=== PATIENT | male | born 1990 | race Caucasian/White ===

== ENCOUNTER 2017-05-26 07:48 | Day surgery (SDC) | payer OTHER ==
[~2017-05-26] VITALS: Ht 175.3 cm; Wt 86.2 kg
[~2017-05-26 07:48] MED LIST: TYLENOL EXTRA500 MG PO
[2017-05-26 08:32] VITALS: BP 128/85
[2017-05-26 11:00] VITALS: BP 133/86
[2017-05-26 11:37] VITALS: BP 120/72
== END 2017-05-26 11:45 | disposition home or self-care (01) ==
LOC: SDC 07:48
PROC: 09JK8ZZ Inspection of Nasal Mucosa and Soft Tissue, Via Natural or Artificial Opening Endoscopic (ICD-10-PCS; principal; 2017-05-26)
DX: D38.5 Neoplasm of uncertain behavior of other respiratory organs (principal); J31.1 Chronic nasopharyngitis; Z21 Asymptomatic human immunodeficiency virus [HIV] infection status; K21.9 Gastro-esophageal reflux disease without esophagitis; G47.30 Sleep apnea, unspecified; F17.200 Nicotine dependence, unspecified, uncomplicated
CPT/HCPCS: 88305; J0131; J0330; J1100; J2250; J2405; J3010; Q0175